=== PATIENT | male | born 1950 | race African-American/Black ===

== ENCOUNTER 2018-05-08 13:42 | Inpatient (IN) | payer MEDICARE, BC ==
[2018-05-08] MEDS ORDERED: Ondansetron PF 4 MG/2 ML Vial IVP PRN (16:55)
[2018-05-08] MEDS ORDERED: Senokot S 8.6-50 MG TAB PO PRN (16:55)
[2018-05-08] MEDS ORDERED: Ondansetron ODT 4 MG TAB PO PRN (16:55)
[2018-05-08] MEDS ORDERED: Acetaminophen 650 MG Suppository PR PRN (16:55)
--- NOTE | 2018-05-08 17:25 | ULT ---
FEXAM: Carotid Doppler PROVIDED CLINICAL HISTORY: TIA COMPARISON: None FINDINGS: Grayscale and color Doppler sonography with spectral analysis was performed of the extracranial carot id system bilaterally. There is no evidence for a hemodynamically significant internal carotid artery stenosis by peak systolic velocity or ratio criteria. Antegrade flow is seen in the vertebral arter ies. IMPRESSION: No sonographic evidence for a hemodynamically significant internal carotid artery stenosis.
--- NOTE | 2018-05-08 17:57 | MRI ---
FEXAM: MRI cervical spine PROVIDED CLINICAL HISTORY: Neck pain and hand weakness COMPARISON: None FINDINGS: Cervical alignment appears normal. Vertebral body heights and intervertebral disc space heights are p reserved. The visualized posterior fossa, cervicomedullary junction and cervical spinal cord demonstr ate normal signal and morphology. Uncinate process hypertrophy and facet arthritis left of midline at C4-5 produces moderate-severe foraminal narrowing. No additional significant foraminal narrowing is evident. There is no significant central canal stenosis apparent. No prevertebral soft tissue swellin g is evident. No focal concerning regional marrow signal abnormality. IMPRESSION: Foraminal narrowing left of midline at C4-5 as above.
[2018-05-08 18:26] VITALS: BMI 21.6
--- NOTE | 2018-05-08 18:27 | HP ---
CHIEF COMPLAINT: Left hand weakness. HISTORY OF PRESENT ILLNESS: Mr. Marsh is a pleasant 68-year-old man with a background history of hypertension, who is also HIV positive, presenting today with a significant worsening of the left hand weakness. He states it was suddenly worse at approximately 7:30 a.m. this morning while doing yard work. He states he has had progressively worsening and intermittent weakness in his left hand since February 2018. He has noted difficulty holding objects and dropping things in his left hand. He reports having reduced sensation in the hand as well. He has felt generally unwell since February. At that time, he had presented after an unwitnessed collapse to an ER in [place]. The patient states he sustained a neck injury and does not recall what kind of imaging he had to his neck, but reports having significant intermittent pain on the left side of his neck since then, that is usually exacerbated with activity and more recently in the last 2 to 3 weeks. He has noted increased weakness in the hand. Due to the syncopal episode, he experienced back in February the patient was placed on Keppra as he was suspected to have had a seizure. He has had no further episode since then. Denies any recent injuries. The patient presented to [facility] today and underwent a CT of the head that was negative. He also underwent CT angiography, which per the ER physician was also negative. The patient was given aspirin and has been admitted for CVA/TIA workup. REVIEW OF SYSTEMS: The patient continues with weakness in his hand and denies experiencing any weakness in his lower extremities. Has not had any facial numbness or drooping. No speech disturbances or visual changes. Denies any headache or dizziness today. He does report, however, experiencing occasional moments of unsteadiness or vertigo lasting a few minutes since February. At times, he has to come to his knees until it settles. Denies having any chest pain, palpitations , or shortness of breath. No abdominal pain or cramping. He does suffer from constipation which he manages with his nutrition. Last bowel movement was yesterday, and he states it was better than usual. Denies noting any blood in the stools. No urinary symptoms. Has not had any fevers, chills, or sweats. No neck stiffness. At this present time, he denies having any neck pain, however, it is significant when it does come on, radiating from the lower left neck to behind his left ear. No changes in his hearing. With his weight, he has noticed a loss of 10 pounds over the last 6 months. Reports normal appetite. All other review of systems are negative. PAST MEDICAL HISTORY: 1. Hypertension. 2. HIV positive. 3. Unwitnessed collapse in February 2018, presumed seizure like episode and placed on Keppra. PAST SURGICAL HISTORY: Tonsillectomy as a child. SOCIAL HISTORY: Former smoker. Quit more than 10 years ago. Has not had any alcohol since the syncopal episode in February. Denies any illicit drug use. He is fully independent. ALLERGIES: NO KNOWN DRUG ALLERGIES. MEDICATIONS: 1. Tivicay. 2. Levetiracetam. 3. Amlodipine. 4. Lamivudine/zidovudine. 5. Aspirin. 6. Ranitidine. PHYSICAL EXAMINATION: GENERAL: The patient appears well developed with some facial wasting. He is in no acute distress. VITAL SIGNS: Temperature 98.8, pulse 79, blood pressure 152/85, respirations 18 , and O2 saturation 99% on room air. HEENT: Normocephalic and atraumatic. Pupils are equal, round, and reactive to light. Extraocular movements are normal. No nystagmus. Oropharynx is clear. NECK: Supple without any lymphadenopathy or tenderness. No swelling. CARDIAC: Regular rate and rhythm. LUNGS: Clear to auscultation bilaterally. No chest wall tenderness. ABDOMEN: Soft, nontender, nondistended. Normoactive bowel sounds present. EXTREMITIES: No lower leg swelling or edema. No calf tenderness. NEUROLOGIC: Alert and oriented x3. Facial movements are normal, and facial sensation is intact. Isolated weakness of the left hand with no glass finisher strength, no pincer grasp. When checking for strength in fingers, individually able to flex left thumb and left forefinger against resistance. Normal power and sensation in the forearm, and normal adduction and abduction of the shoulder, passive and against resistance. Reduced sensation of the hand along the ulnar aspect. No cerebellar signs. SKIN: Without rash or jaundice. LABORATORY DATA: White blood count 8.9, hemoglobin 13.5, hematocrit 45, platelets 240. PT 13.4, INR 1, PTT 26.7. Sodium 142, potassium 3.9, chloride 108, carbon dioxide 23, anion gap 15, BUN 11, creatinine 1.20, GFR 73, glucose 99, calcium 10.1, total bilirubin 0.4, AST 27, ALT 33, alkaline phosphatase 147. Troponin I negative. Albumin 4.2. IMAGING DATA: As mentioned above in HPI. IMPRESSION AND PLAN: Mr. Marsh is a pleasant 68-year-old man, admitted for management of the following; 1. Left hand weakness/numbness. The patient states this problem has been ongoing since a recent injury following a collapse back in February 2018. He has intermittent severe left-sided neck pain. None at present and no tenderness on examination. The weakness has progressively been worsening over the last 2 to 3 weeks and significantly worse this morning. We will obtain an MRI of the C- spine to assess for any underlying radiculopathy. Given the fact that he has presented with a collapse in the past, we will also rule out transient ischemic attack/cerebrovascular accident. He has undergone a brain CT and CTA of the head, both negative. We will obtain an echo as well as carotid Dopplers. Lipid panel requested with morning labs. 2. History of collapse. Presumed to have been a seizure. We will continue Keppra and monitor. 3. Hypertension. Resume home medications and monitor blood pressure. 4. Human immunodeficiency virus positive. Resume home medications. 5. Gastrointestinal prophylaxis. 6. Deep venous thrombosis prophylaxis. 7. Full code status. His surrogate decision maker is his brother, Gilbert Marsh. The patient's case was discussed with Dr. Rowley, who agrees with the plan of care as described above. ADDENDUM: C-spine MRI notable for foraminal to left of C4-C5. Neurosurgery consult requested. No need for Stroke Team or Neurology consult at this present time. Continue with Echo and carotid US given previous syncopal episode and complaints of occasional presyncope. Plan as per discussion with Dr. Guillermo. Job ID: [id number] [facility]
[2018-05-08] MEDS: Famotidine/PF 20 mg/2ml Vial SLOW IVP SCH (20:21)
[2018-05-09 06:01] LABS: #Basophils 0.1 thou/uL (0.0-0.2); #Eosinphils 0.4 thou/uL (0.0-0.7); #Lymphocytes 2.4 thou/uL (1.20-3.40); #Monocytes 0.7 thou/uL (0.11-0.59); #Neutrophils 4.3 thou/uL (1.40-6.50); %Basophils 0.8 % (0.0-1.0); %Eosinophils 4.5 % (0.0-10.0); %Lymphocytes 30.9 % (21.0-51.0); %Monocytes 8.4 % (0.0-10.0); %Neutrophils 55.4 % (42.0-75.0); Hemoglobin 12.3 g/dL (14.0-18.0); Mean Corpuscular HGB CONC 32.7 g/dL (32.0-36.0); Mean Corpuscular Hemoglobin 29.7 pg (27.0-31.0); Mean Corpuscular Volume 90.8 fL (78.0-98.0); Mean Platelet Volume 8.7 fL (7.4-10.4); Platelet Count 233 thou/uL (130-400); RBC Distribution Width 17.1 % (11.5-14.5); Red Blood Cell (RBC) Count 4.14 mill/uL (4.70-6.10); White Blood Cell (WBC) Count 7.8 thou/uL (4.8-10.8)
[2018-05-09 06:19] LABS: Anion Gap 11 mmol/L (10-20); BUN (Urea Nitrogen) 9 mg/dL (8.4-25.7); Calc. Creatinine Clearance 60 mL/min (70-130); Calcium 9.4 mg/dL (7.8-10.44); Carbon Dioxide 26 mmol/L (23-31); Cardiac Risk 2.9 (Less than 4.5); Chloride 106 mmol/L (98-107); Cholesterol 124 mg/dl (< 200 Desired); Estimated GFR-MDRD 72; Glucose 98 mg/dL (80-115); HDL Cholesterol 43 mg/dL (>60 Neg Risk); LDL Cholesterol, Calculated 68 mg/dL; Potassium 3.9 mmol/L (3.5-5.1); Sodium 139 mmol/L (136-145); Triglycerides 67 mg/dL (Less than 150)
[2018-05-09] MEDS: Amlodipine 5 MG TAB PO SCH (08:32)
[2018-05-09] MEDS: Acetaminophen 325 MG TAB PO PRN ×2 (08:33→23:43)
[2018-05-09] MEDS: Famotidine/PF 20 mg/2ml Vial SLOW IVP SCH ×2 (08:33→20:35)
[2018-05-09] MEDS: Enoxaparin Sodium 40 MG/0.4 ML SYRINGE SC SCH (08:33)
[2018-05-09] MEDS ORDERED: Prevnar 13-Val Conj/PF 0.5 ML SYRINGE IM ONE (09:00)
[2018-05-09] MEDS ORDERED: Meclizine HCl 12.5 MG TAB PO PRN (10:17)
[2018-05-09] MEDS: Dolutegravir Sodium [Tivicay] 50 MG PO SCH (10:32)
[2018-05-09] MEDS: ZIDOVUDINE PO SCH ×2 (10:32→20:34)
[2018-05-09] MEDS: LAMIVUDINE PO SCH ×2 (10:32→20:34)
--- NOTE | 2018-05-09 16:28 | PDOC.PN ---
- Subjective Encounter Start Date: 05/09/18 Encounter Start Time: 16:25 Patient standing at bedside when I entered the room, he reports feeling alright. He has complaints of chronic neck pain along with left arm weakness and tingling since February after sustaining neck injury after presyncopal episode. He reports being seen in [place] when symptoms started and reported workup negative. He was diagnosed with Seizure disorder and was started on Keppra, he ultimately took himself off keppra. Workup here showing foraminal narrowing at C4-5. Neuro surgery consulted. Patient also reports positional vertigo that comes and goes, but denies symptoms in the last 3-4 days. - Objective Resuscitation Status - Order Detail: 05/08/18 16:55 Resuscitation Status Routine Co-Sign Provider: Resuscitation Status: FULL: Full Resuscitation Discussed with: patient Additional comments: surrogate decision maker is Gilbert Marsh, brother. MAR Reviewed: Yes Vital Signs & Weight: Vital Signs (12 hours) Temp Pulse Resp BP BP Pulse Ox 05/09/18 15:48 98.0 F 76 16 116/71 97 05/09/18 11:37 98.0 F 85 16 112/70 99 05/09/18 08:32 80 114/77 05/09/18 07:53 98.8 F 80 20 114/77 99 Weight Weight 164 lb I&O: 05/08/18 05/09/18 05/10/18 06:59 06:59 06:59 Intake Total 400 1 Balance 400 1 Result Diagrams: 05/09/18 05:34 05/09/18 05:34 Radiology Reviewed by me: Yes Phys Exam - Physical Examination Constitutional: NAD HEENT: moist MMs, oral pharynx no lesions Neck: no nodes, supple Respiratory: no wheezing, clear to auscultation bilateral Cardiovascular: RRR, no significant murmur Gastrointestinal: soft, no distention, positive bowel sounds Musculoskeletal: no edema, pulses present Neurological: moves all 4 limbs 2/5 strength on right upper extremity, 5/5 on left Lymphatic: no nodes Psychiatric: normal affect, A&O x 3 Skin: no rash, cap refill <2 seconds Dx/Plan (1) Left hand weakness Code(s): R29.898 - OTH SYMPTOMS AND SIGNS INVOLVING THE MUSCULOSKELETAL SYSTEM Status: Acute (2) Numbness of left hand Code(s): R20.0 - ANESTHESIA OF SKIN Status: Acute (3) Neural foraminal stenosis of cervical spine Code(s): M99.81 - OTHER BIOMECHANICAL LESIONS OF CERVICAL REGION Status: Acute (4) HIV (human immunodeficiency virus infection) Code(s): B20 - HUMAN IMMUNODEFICIENCY VIRUS [HIV] DISEASE Status: Acute (5) HTN (hypertension) Code(s): I10 - ESSENTIAL (PRIMARY) HYPERTENSION Status: Acute (6) Vertigo Code(s): R42 - DIZZINESS AND GIDDINESS Status: Acute - Plan cont current plan of care, PT/OT * Obtain records from [place] * Continue home medications including aspirin, add statin * Neurosurgery consulted for foraminal narrowing of c4-c5 * PT/OT, recommending outpatient OT * Meclizine for vertigo as needed
[2018-05-09] MEDS ORDERED: Famotidine 20 MG TAB PO SCH (21:00)
--- NOTE | 2018-05-10 00:32 | CON ---
DATE OF CONSULTATION: This is Chrissy Matias PA-C dictating a report for Jayant Lopez MD. HISTORY OF PRESENT ILLNESS: The patient is a 68-year-old male with a past medical history of HIV positive, hypertension, who presented to the emergency department on 05/08/2018 for acute onset of left hand weakness. The patient reports that he was working in his yard around 7:30 that morning when he noticed acute onset of weakness of the left hand. Weakness of the left hand associated with numbness and tingling of the left hand as well. He had difficulty holding objects and was dropping things with the left hand. This prompted ER evaluation in [facility] today, where he underwent a CT head which was negative for acute changes. He also underwent CT angiography of the brain, which was also negative for any acute changes. He was also having some slight neck discomfort on the left side with radiation into his left shoulder. Therefore, noncontrast cervical MRI was done, which was notable for some multilevel degenerative changes which are mild and questionable left-sided foraminal stenosis at C4-C5. PAST MEDICAL HISTORY: Hypertension, HIV positive. PAST SURGICAL HISTORY: Tonsillectomy. SOCIAL HISTORY: He is a former smoker. He does not drink or use any drugs. ALLERGIES: NO KNOWN DRUG ALLERGIES. REVIEW OF SYSTEMS: Per HPI. PHYSICAL EXAMINATION: VITAL SIGNS: Temperature is 98.0, pulse is 76, respiratory rate is 16, the patient is 97% on room air, and blood pressure is 116/71. CONSTITUTIONAL: The patient is awake, alert, and in no acute distress. HEENT: Head, normocephalic and atraumatic. Eyes, PERRLA. Extraocular movements intact. ENT, oral mucosa is pink, intact, and moist. The patient has normal voice. NECK: Nontender to palpation. No meningismus or nuchal rigidity. CARDIAC: Regular rate and rhythm. LUNGS: The patient is breathing comfortably with symmetric chest expansion. MUSCULOSKELETAL: The patient has notable decreased instrument assembler strength with the left hand and also decreased strength with wrist extension. The remainder of the muscle groups in the upper extremity is 5/5. He also has 5/5 strength in the right upper extremity and bilateral lower extremities. NEUROLOGIC: He is A and O x4. He has a steady gait. Left upper extremity weakness is noted in the extremity exam. ASSESSMENT AND PLAN: This is a 68-year-old male with acute onset left upper extremity weakness on 05/08/2018. His MRI was done, which was mild for left-sided C4-C5 foraminal stenosis. However, after reviewing the films by myself and Dr. Lopez, we agree that there is no significant nerve compression here and this is a unlikely etiology of his left hand weakness. We recommend to obtain further evaluation with MRI of the brain as well as neurology consult. Please reach out Neurosurgery for additional questions or concerns. Job ID: [id number] MTDD
[2018-05-10] MEDS: Amlodipine 5 MG TAB PO SCH (08:28)
[2018-05-10] MEDS: LAMIVUDINE PO SCH ×2 (08:29→20:43)
[2018-05-10] MEDS: Famotidine 20 MG TAB PO SCH ×2 (08:29→20:43)
[2018-05-10] MEDS: Aspirin 81 mg Enteric Coated Tablet PO SCH (08:29)
[2018-05-10] MEDS: ZIDOVUDINE PO SCH ×2 (08:29→20:43)
[2018-05-10] MEDS: Enoxaparin Sodium 40 MG/0.4 ML SYRINGE SC SCH (08:30)
[2018-05-10] MEDS: Dolutegravir Sodium [Tivicay] 50 MG PO SCH (08:30)
[2018-05-10] MEDS ORDERED: Aspirin 81 mg Enteric Coated Tablet PO SCH (09:00)
--- NOTE | 2018-05-10 09:25 | MRI ---
FExam: Brain MRI without contrast HISTORY: Stroke protocol. Left-sided weakness. COMPARISON: None FINDINGS: Calvarial marrow signal intensity: Appropriate T1 signal Gradient echo sequence: No hemorrhage Brain parenchyma: No mass, mass effect or midline shift. Brain volume, age-appropriate. Cortical nieto-white matter differentiation: Preserved Restricted diffusion: Restricted diffusion involving the right precentral gyrus. White matter signal intensities: T12 FLAIR white matter hyperintensities due to chronic small vessel ischemic changes Sinuses: Adequate aeration of the paranasal sinuses and mastoid air cells. IMPRESSION: Acute infarct involving the right precentral gyrus.
[2018-05-10] MEDS ORDERED: Labetalol HCl 100 MG/20 ML VIAL SLOW IVP PRN (10:10)
[2018-05-10] MEDS ORDERED: hydrALAZINE 20 MG/ML VIAL SLOW IVP PRN (10:10)
--- NOTE | 2018-05-10 16:02 | PDOC.PN ---
- Subjective Encounter Start Date: 05/10/18 Encounter Start Time: 16:01 Patient sitting up in bed this morning. He reports feeling better today, neck pain improved and he noticed he is able to use left hand more today with a notable increase in strength. OT recommending outpatient OT. MRI showing acute infarct. - Objective Resuscitation Status - Order Detail: 05/08/18 16:55 Resuscitation Status Routine Co-Sign Provider: Resuscitation Status: FULL: Full Resuscitation Discussed with: patient Additional comments: surrogate decision maker is Gilbert Marsh, brother. MAR Reviewed: Yes Vital Signs & Weight: Vital Signs (12 hours) Temp Pulse Resp BP BP Pulse Ox 05/10/18 15:43 98.9 F 96 16 104/73 98 05/10/18 12:00 98.6 F 75 16 135/63 98 05/10/18 08:28 92 114/73 05/10/18 08:00 98.9 F 92 20 114/73 99 Weight Weight 164 lb I&O: 05/09/18 05/10/18 05/11/18 06:59 06:59 06:59 Intake Total 400 451 Balance 400 451 Result Diagrams: 05/09/18 05:34 05/09/18 05:34 Radiology Reviewed by me: Yes Phys Exam - Physical Examination Constitutional: NAD HEENT: moist MMs, oral pharynx no lesions Neck: no nodes, supple Respiratory: no wheezing, clear to auscultation bilateral Cardiovascular: RRR, no significant murmur Gastrointestinal: soft, no distention, positive bowel sounds Musculoskeletal: pulses present Neurological: moves all 4 limbs Strength 3+ left upper extremity, 5+ on right Lymphatic: no nodes Psychiatric: A&O x 3 Skin: no rash, cap refill <2 seconds Dx/Plan (1) Left hand weakness Code(s): R29.898 - OTH SYMPTOMS AND SIGNS INVOLVING THE MUSCULOSKELETAL SYSTEM Status: Acute (2) Numbness of left hand Code(s): R20.0 - ANESTHESIA OF SKIN Status: Acute (3) Neural foraminal stenosis of cervical spine Code(s): M99.81 - OTHER BIOMECHANICAL LESIONS OF CERVICAL REGION Status: Acute (4) HIV (human immunodeficiency virus infection) Code(s): B20 - HUMAN IMMUNODEFICIENCY VIRUS [HIV] DISEASE Status: Acute (5) HTN (hypertension) Code(s): I10 - ESSENTIAL (PRIMARY) HYPERTENSION Status: Acute (6) Vertigo Code(s): R42 - DIZZINESS AND GIDDINESS Status: Acute (7) CVA (cerebral vascular accident) Code(s): I63.9 - CEREBRAL INFARCTION, UNSPECIFIED Status: Acute - Plan cont current plan of care, PT/OT * MRI results discussed with patient, he was started on Plavix and statin therapy * Neurology services Dr Mcdonald were consulted * He will remain on other home medications * OT will be continued and outpatient OT will be arranged. * Inpatient order submitted due to acute infarct
[2018-05-10] MEDS ORDERED: Atorvastatin Calcium 40 MG TAB PO SCH (21:00)
[2018-05-11 06:36] LABS: Cardiac Risk 2.8 (Less than 4.5)
[2018-05-11] MEDS: Famotidine 20 MG TAB PO SCH (08:40)
[2018-05-11] MEDS: Aspirin 81 mg Enteric Coated Tablet PO SCH (08:41)
[2018-05-11] MEDS: Enoxaparin Sodium 40 MG/0.4 ML SYRINGE SC SCH (08:41)
[2018-05-11] MEDS: Amlodipine 5 MG TAB PO SCH (08:41)
[2018-05-11] MEDS: LAMIVUDINE PO SCH (08:42)
[2018-05-11] MEDS: ZIDOVUDINE PO SCH (08:42)
[2018-05-11] MEDS: Dolutegravir Sodium [Tivicay] 50 MG PO SCH (08:42)
[2018-05-11] MEDS ORDERED: Clopidogrel Bisulfate 75 MG TAB PO SCH (09:00)
[2018-05-11 12:16] VITALS: BP 118/73; TEMP 98.7
--- NOTE | 2018-05-13 09:10 | CON ---
DATE OF CONSULTATION: 05/11/2018 CONSULTING PHYSICIAN: Hospitalist Service. IMPRESSION: 1. Right cortical infarct with left hand weakness. 2. Aspirin failure. PLAN: 1. Add Plavix 75 mg per day for the next 6 months. 2. The patient will be discharged to his discretion. HISTORY OF PRESENT ILLNESS: Mr. Marsh is a 68-year-old man with a recent history of hypertension and HIV, developed acute onset of left hand weakness and clumsiness. This has apparently been going on for the last few days. There are no other associated symptoms. His MRI of the brain showed an acute area of infarction involving the right postcentral gyrus. He has some otherwise moderate amount of subcortical white matter ischemic changes. His carotid exam was unremarkable. His cholesterol ratio was 2.9. Remainder of his lab was otherwise negative. His vital signs have been stable. He is afebrile. PAST MEDICAL HISTORY: Hypertension and HIV. ALLERGIES: NONE. MEDICATION LIST: Reviewed. SOCIAL HISTORY: No tobacco use. FAMILY HISTORY: Noncontributory. REVIEW OF SYSTEMS: Ten system review of systems is otherwise negative. PHYSICAL EXAMINATION: GENERAL: He is a thin elderly man, in no acute distress. VITAL SIGNS: Blood pressure 111/71, pulse 82, respirations 18, and temperature 99.6. HEENT: Pupils are equal and reactive. Conjunctiva are clear. Oropharynx is clear. Cranium; normocephalic and atraumatic. NECK: Supple. EXTREMITIES: No cyanosis, clubbing, or edema. NEUROLOGIC: He is alert and appropriate. His speech is fluent and clear. Cranial nerves 2 through 12 are intact. Motor exam showed diminished strength in the left hand including hand patient registration specialist, finger abduction, adduction, and rapid alternating movements. Sensation was intact to light touch. He could stand and walk without any difficulty. No abnormal movements were seen. LABORATORY DATA: Laboratory studies reviewed. IMAGING STUDIES: MRI of the brain and carotid ultrasound were reviewed. MRI of the cervical spine shows some mild bulge at C4-C5 in significance. SUMMARY: A 68-year-old gentleman with acute stroke involving just strength of his left hand. We would add Plavix for the next 6 months. Continue aspirin. Outpatient followup. Job ID: [id number]
--- NOTE | 2018-05-13 10:51 | DIS ---
DATE OF ADMISSION: 05/10/2018 DATE OF DISCHARGE: 05/11/2018 PRIMARY CARE PROVIDER: Dr. Shen Carlisle in [place], [place]. DISCHARGE DIAGNOSIS: Ischemic cerebrovascular accident. DISCHARGE CONDITION: Condition of patient on the day of discharge: Stable. I assessed Mr. Marsh on the day of discharge. He denies any chest pain or shortness of breath. Vital signs are stable. S1 and S2 are heard, regular. Lungs are clear to auscultation bilaterally. CONSULTATIONS DURING THIS HOSPITALIZATION: Neurosurgery, Dr. Jayant Lopez and Neurology, Dr. Murray Mcdonald. DISCHARGE MEDICATIONS: 1. Amlodipine 5 mg daily. 2. Aspirin 81 mg daily. 3. Tivicay 50 mg daily. 4. Combivir one tablet two times a day. 5. Ranitidine 150 mg at bedtime. 6. Lipitor 40 mg at bedtime. 7. Plavix 75 mg daily. HOSPITAL COURSE: Mr. Marsh is a pleasant 68-year-old gentleman, who was admitted to [facility] on May 08, 2018, for left hand weakness and numbness. Please refer to Ms. Burnette's history and physical note dated May 08, 2018, for further details. MRI of the cervical spine showed foraminal narrowing, left of midline at C4-C5. The patient was seen by Neurosurgery Service, who recommended neurology consult. MRI of the brain showed acute infarct involving the right precentral gyrus. He also had carotid Dopplers, which did not show any evidence of hemodynamically significant stenosis. He has been started on Plavix in addition to his aspirin. He has also been started on statin. He is advised to have a 2D echocardiogram through his primary care provider's office. During this hospitalization, he had a fasting lipid profile showing triglycerides 66, cholesterol 127, LDL cholesterol 68, and HDL cholesterol 46. Creatinine was 1.21 during this hospitalization. Hemoglobin was 12.3. Many thanks for allowing me to participate in your patient's care. Please feel free to contact me with any questions or concerns. DISCHARGE DESTINATION: Home. TIME SPENT: Total amount of time spent coordinating this discharge: 33 minutes. Job ID: [id number]
== END 2018-05-11 12:16 | disposition home or self-care (01) | DRG 65 ==
LOC: ERS 13:42 → 2SE 15:48 → OBSVTOIN 05-10 10:31
PROVIDERS: ADMIT Internal Medicine; ATTEND Internal Medicine
DX: I63.9 Cerebral infarction, unspecified (principal); G81.94 Hemiplegia, unspecified affecting left nondominant side; M99.81 Other biomechanical lesions of cervical region; Z21 Asymptomatic human immunodeficiency virus [HIV] infection status; I10 Essential (primary) hypertension
CPT/HCPCS: 36415; 70551; 72141; 80048; 80061; 83880; 85025; 90471; 90670; 93880; G0009; J1650; S0028